=== PATIENT | female | born 1945 | race Caucasian/White ===

== ENCOUNTER 2023-11-07 13:47 | Emergency (ER) | payer MEDICARE, SELFPAY ==
--- NOTE | ~2023-11-07 | XR_ITS ---
XR ribs RT 2V w CXR 2V DATE: 11/07/2023 14:28 INDICATION: Fall. Chest pain TECHNIQUE: PA chest and lateral chest. 4 views of the right ribs. COMPARISON: None FINDINGS: Heart size is within normal range. Is aortic unfolding. Calcified aortopulmonary window lym ph node consistent with old granulomatous disease. No pulmonary infiltrate or consolidation, pleural effusion or pulmonary vascular congestion or pneumo thorax is detected. Osteopenia. No right rib fracture or bone destruction is evident. IMPRESSION: No active cardiopulmonary disease Osteopenia No right rib fracture is detected Reviewed, dictated and finalized at location A.
[2023-11-07 13:56] VITALS: BP 153/78; PULSE 77; RESP 20; TEMP 37.3; O2SAT 98
--- NOTE | 2023-11-07 14:52 | ED.FALL ---
HPI - Fall General Chief Complaint: Fall Stated Complaint: pain in ribs from fall Time Seen by Provider: 11/07/23 14:31 Source: patient, RN notes reviewed and old records reviewed Mode of arrival: ambulatory Limitations: no limitations History of Present Illness HPI Narrative: 78-year-old female to [facility] for complaint of right posterior rib discomfort status post fall 4 days ago. Patient states that she lost her balance and tripped in her garage, falling onto right lateral ribs. Patient denies any pain immediately after injury. Patient states pain started following day. Patient has attempted to treat at home with [id number] topical medications with some relief. Patient hypertensive in triage. Patient denies shortness of breath, cough, ecchymosis, deformity, allergies, pertinent medical history. Patient resting in exam room comfortably in no acute distress. Respirations even and nonlabored. Patient able to speak in full sentences without difficulty. Patient able to tolerate fluids by mouth. Related Data Home Medications Medication Instructions Recorded Confirmed anastrozole 1 mg tablet mg 11/07/23 candesartan 32 tablet 11/07/23 mg-hydrochlorothiazide 25 mg tablet icosapent ethyl 1 gram capsule g PO 11/07/23 lovastatin 40 mg tablet mg 11/07/23 metoprolol succinate 50 mg mg PO 11/07/23 tablet,extended release 24 hr Allergies Allergy/AdvReac Type Severity Reaction Status Date / Time No Known Allergies Allergy Verified 11/07/23 14:01 Review of Systems Review of Systems: All systems reviewed & are unremarkable except as noted in HPI and below Constitutional: Constitutional: Reports no additional constitutional complaints Eyes: Eyes: Reports no additional eye complaints ENT: Reports system reviewed and no additional complaints, except as documented Cardiovascular: Cardiovascular: Reports no additional cardiovascular complaints, Denies chest pain and Denies dyspnea Respiratory: Respiratory: Reports no additional respiratory complaints, Denies cough and Denies dyspnea Musculoskeletal: Musculoskeletal: Reports as per HPI and Reports other ( right posterior rib pain) Neurologic: Reports system reviewed and no additional complaints, except as documented Psychiatric: Psychiatric: Reports no additional psychiatric complaints PMFSH Comments At the time of my signature, I reviewed and agree with the nursing past medical, surgical, social, and family history. There is no relevant family history pertinent to the patient complaint. Exam Const: General: cooperative, healthy appearing, comfortable, no acute distress, alert and well nourished Nutritional Appearance: well nourished Orientation/consciousness: patient oriented x3 Limitations: no limitations HENMT: Head: normal to inspection Ears: external ears normal Face/Nose/Sinus: Normal external nose present, Normal nares present, normal facial exam, No erythema and No edema Face and sinus: normal facial exam, no erythema and no edema Mouth: Yes Normal oral and palatal mucosa present Eyes: General: appearance normal, both eyes and all related structures Neck: Neck: normal visual inspection, full ROM and no meningeal signs Lymphatic: no lymphadenopathy noted and no lymphedema noted Chest: Chest palpation & inspection: normal inspection of the chest Resp: Effort & Inspection: normal respiratory effort and able to speak in complete sentences Auscultation: clear to auscultation bilaterally Cardio: Jugular venous distension: no JVD Rate: regular rate Rhythm: regular rhythm Back/Spine/Pelvis: Cervical Spine: cervical ROM normal Skin: General skin exam: normal color, no rashes or lesions noted and turgor normal Neuro: General: patient oriented x3, gait normal, moves all extremities and no meningeal signs Speech: normal speech Gait exam (Neuro): Normal gait present Extrem: General: normal to inspection, full ROM and capillary refill no
== END 2023-11-07 15:08 | disposition home or self-care (01) ==
PROVIDERS: Emergency Provider Nurse Practitioner Family; PCP Family Medicine
DX: S20.221A Contusion of right back wall of thorax, initial encounter (principal); S39.012A Strain of muscle, fascia and tendon of lower back, initial encounter; W01.0XXA Fall on same level from slipping, tripping and stumbling without subsequent striking against object, initial encounter; R03.0 Elevated blood-pressure reading, without diagnosis of hypertension; E78.00 Pure hypercholesterolemia, unspecified; E11.9 Type 2 diabetes mellitus without complications; M19.90 Unspecified osteoarthritis, unspecified site
CPT/HCPCS: 71046; 71100; 99203; G0463

== ENCOUNTER 2024-02-25 09:53 | Emergency (ER) | payer MEDICARE, SELFPAY ==
[2024-02-25 10:02] VITALS: BP 140/68; PULSE 77; RESP 20; TEMP 37.2; O2SAT 99
--- NOTE | 2024-02-25 10:51 | ED.URI ---
HPI - URI/Sore Throat General Chief Complaint: Upper Respiratory Infection Stated Complaint: Head congestion Time Seen by Provider: 02/25/24 10:40 Source: patient, RN notes reviewed and old records reviewed Mode of arrival: ambulatory Limitations: no limitations History of Present Illness HPI Narrative: 78 [facility] complaints of watery eyes sinus congestion and drainage for the past 5 days with facial pressure and some mild cough with some exertional dyspnea at times. Patient reports no chest pain, pressure or any diaphoresis. She reports that she has been taking Mucinex, and Coricidin for her symptoms. Patient reports no known fevers, chills or body aches. MD elicited complaint: cough, rhinorrhea and nasal congestion Onset (ago): day(s) (5) Consistency: constant Severity: moderate Able to tolerate fluids by mouth: Yes Treatments prior to arrival: other (Mucinex, Coricidin) Related Data Home Medications ?Medication ?Instructions ?Recorded ?Confirmed ?Last Taken ?Type anastrozole 1 mg tablet mg 11/07/23 Unknown History candesartan 32 tablet 11/07/23 Unknown History mg-hydrochlorothiazide 25 mg tablet icosapent ethyl 1 gram capsule g PO 11/07/23 Unknown History lovastatin 40 mg tablet mg 11/07/23 Unknown History metoprolol succinate 50 mg mg PO 11/07/23 Unknown History tablet,extended release 24 hr Allergies Allergy/AdvReac Type Severity Reaction Status Date / Time No Known Allergies Allergy Verified 02/25/24 10:08 Review of Systems Review of Systems: CONSTITUTIONAL: Reports some malaise,no chills, sweats, or known fevers. EYES: Denies visual changes, redness, or discharge. ENT: Reports rhinorrhea, congestion, sinus pain,no otalgia and no sore throat. CARDIOVASCULAR: Denies chest pain, palpitations, or edema. RESPIRATORY: Reports cough.?intermittent exertional dyspnea with cough GASTROINTESTINAL: Denies abdominal pain, nausea, vomiting, diarrhea SKIN: Denies rash or itching. MUSCULOSKELETAL: Denies myalgia. NEUROLOGIC: Denies headache. 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 There is no relevant family history pertinent to the presenting complaint Exam Narrative: GENERAL: Well-appearing, well-nourished, and in no acute distress. HEAD: Normocephalic EYES: PERRLA, conjunctivae clear ENT: Nares clear, turbinates edematous and erythematous, clear to light yellow discharge, facial pressure. Mucous membranes moist. TM pearly ignacio with dull light reflex bilaterally; no tragal tenderness. Oropharynx erythematous without lesions. Tonsils not enlarged and without exudate, no drooling, no hoarseness, no trismus, uvula midline.post nasal drainage NECK: Supple. No lymphadenopathy CHEST: Clear to auscultation, breath sounds equal. No wheezing, rhonchi, rales, or stridor. No respiratory distress, speaks in full sentences.dry cough SAO2 99% on room air HEART: Regular rate and rhythm. No murmur heard. SKIN: Warm, dry, no rash. NEURO: Alert and oriented x3. PSYCH: Normal mood and affect Course Course Emergency Course: Patient is aware of diagnosis, understands and agrees to treatment plan.? Anticipatory guidance given.? Patient agrees to follow-up as directed and is aware of reasons to seek care at the emergency department. Portions of this record may have been created with voice recognition software Level of Care: Express Care Visit Vital Signs Vital signs: Vital Signs Temperature 37.2 C 02/25/24 10:02 Pulse Rate 77 02/25/24 10:02 Respiratory Rate 20 02/25/24 10:02 Blood Pressure 140/68 02/25/24 10:02 Pulse Oximetry 99 02/25/24 10:02 Oxygen Delivery Room Air 02/25/24 10:02 Temperature 37.2 C 02/25/24 10:02 Pulse Rate 77 02/25/24 10:02 Respiratory Rate 20 02/25/24 10:02 Blood Pressure 140/68 02/25/24 10:02 Pulse Oximetry 99 02/25/24 10:02 Oxygen Delivery Room Air 02/25/24 10:02 reviewed MDM - URI/Sore Throat MDM Narrative Medical decision making narrative: Differential diagnosis considered: Merritt virus, strep pharyngitis, allergic rhinitis, upper respiratory tract infection, sinusitis, rhinosinusitis, nasopharyngitis. viral pharyngitis, otitis media, otitis externa, pneumonia, bronchitis, viral cough syndrome, viral syndrome, and influenza.? Exam findings show no acute concerns or changes; patient is non-toxic appearing and is in no distress.? Patient is appropriate for outpatient treatment and follow-up. Differential Diagnosis Differential diagnosis: Likely upper respiratory infection, sinusitis, viral infection and other (Rhinosinusitis) Medical Records Attestation: I reviewed the patient's medical records. Lab Data Attestation: I reviewed the patient's lab results. Critical Care Time Critical Care Time Critical Care Time: No Discharge Plan Discharge Clinical Impression: Bacterial sinusitis Patient Disposition: Home, Self-Care Condition: Stable Instructions: Antibiotic Form, Rhinosinusitis (ED) Additional Instructions: Increase fluids especially juices and water [id number] cough and cold medicine of your choice for your symptoms Zyrtec Claritin or Kirstin daily include Coricidin brand decongestant Tylenol or ibuprofen for any fever pain heat to the face 20-30 minutes 4-6 times a day for pain Salt water gargles, throat lozenges or throat sprays as desired Antibiotic as directed--finished the medication If your symptoms persist, change or worsen significantly before you can contact your personal physician then please, without delay, go to the emergency department for further evaluation. Follow-up with PCP in 7-10 days or sooner if needed Follow up with PCP soon in regards to your blood pressure which is elevated above threshold for referral. Blood pressure above 120/80 may indicate pre-hypertension. 140/68 Patient Language: Haitian Prescriptions: New amoxicillin 875 mg tablet 875 mg PO Q12H Qty: 20 0RF No Action anastrozole 1 mg tablet metoprolol succinate 50 mg tablet extended release 24 hr PO lovastatin 40 mg tablet candesartan-hydrochlorothiazid 32-25 mg tablet icosapent ethyl 1 gram capsule PO Follow-up/Referrals: Sarah,Pedro Reddy MD [Primary Care Provider] - Time of Disposition: 11:01 Quality Willi Coma Scale Eyes: Open Verbal: Oriented and Alert Motor: Follows Commands Willi Coma Total Score: 15
== END 2024-02-25 11:05 | disposition home or self-care (01) ==
PROVIDERS: Emergency Provider Registered Nurse; PCP Family Medicine
DX: J32.8 Other chronic sinusitis (principal); B96.89 Other specified bacterial agents as the cause of diseases classified elsewhere; I10 Essential (primary) hypertension; E11.9 Type 2 diabetes mellitus without complications; E78.00 Pure hypercholesterolemia, unspecified
CPT/HCPCS: 99213; G0463